=== PATIENT | male | born 1950 | race Caucasian/White ===

== ENCOUNTER → 2016-12-12 | Outpatient (CLI) | payer BC ==
[~2016-12-12] MED LIST: ASPI1TAB83; METO1TAB69 PO
--- NOTE | 2016-12-12 14:40 | DIAGNOSTIC IMAGING REPORT ---
TESTICULAR ULTRASOUND HISTORY: Left sided TESTICULAR LUMP COMPARISON: None. FINDINGS: Right testis: 5.1 x 2.9 x 2.5 cm. There are no intratesticular masses. Normal color flow. No hydrocele. There is a 1.1 cm cyst within the epidural head.. Left testis: 5.2 x 3.6 x 2.7 cm. There are no intratesticular masses. Normal color flow. No hydrocele. The epididymis is unremarkable. Slight left scrotal thickening in comparison to the right. The patient's palpable abnormality appears to correspond to the tail the left epididymis. This does not appear to be significantly hyperemic. There are no masses. IMPRESSION: 1. Normal bilateral testes. 2. A 1.1 cm right epididymal head cyst. 3. Mild left scrotal thickening. 4. The patient's palpable abnormality appears to correspond to the tail of the left epididymis. This does not appear to be significantly hyperemic. There are no masses. Electronically signed by: Isaias Silver M.D. 12/12/2016 2:39 PM Dictated Date/Time: 12/12/2016 2:34 PM
== END | disposition home or self-care (01) ==
LOC: C.ULTRBC 13:50
PROVIDERS: ATTEND Nurse Practitioner Family
DX: N50.9 Disorder of male genital organs, unspecified (principal); Z11.59 Encounter for screening for other viral diseases; C61 Malignant neoplasm of prostate

== ENCOUNTER → 2017-12-18 | Outpatient (CLI) | payer BC ==
[~2017-12-18] MED LIST changes: +METO100T44 PO; -METO1TAB69 PO
[2017-12-18 11:36] LABS: BLOOD UREA NITROGEN 17 mg/dl (7-18); CALCIUM 9.3 mg/dl (8.5-10.1); CARBON DIOXIDE 30 mmol/L (21-32); CHOLESTEROL 151 mg/dl (0-200); CREATININE 1.12 mg/dl (0.60-1.40); GLUCOSE 86 mg/dl (70-99); POTASSIUM 4.1 mmol/L (3.5-5.1); SODIUM 140 mmol/L (136-145)
[2017-12-18 11:41] LABS: LDL CHOLESTEROL CALCULATED 84 mg/dl
== END | disposition home or self-care (01) ==
LOC: C.LABBC 08:23
PROVIDERS: ATTEND Internal Medicine
DX: E78.5 Hyperlipidemia, unspecified (principal); Z12.5 Encounter for screening for malignant neoplasm of prostate

== ENCOUNTER → 2018-06-02 | Day surgery (SDC) | payer BC ==
[2018-05-26 15:23] VITALS: BMI 24.0
[~2018-06-02] VITALS: Ht 190.5 cm; Wt 89.1 kg
[~2018-06-02] MED LIST changes: -ASPI1TAB83; +ASPI1TAB83 PO; +ATOR-22 PO; +IBUP-1050 PO; +LIDOCAINE HCL 2% 2 ML VIAL (20MG/ML) ONE; +PROPOFOL IV EMULSION 10 MG/ML 20 ML VIAL ONE; +SODIUM CHLORIDE 0.9% 500ML 500 ML IV ONE
[2018-06-02 09:25] VITALS: Ht 190.5 cm; Wt 89.1 kg
[2018-06-02 09:32] VITALS: TEMP 36.6
--- NOTE | 2018-06-02 09:56 | Endo History and Physical ---
History & Physical Date of Service: Jun 02, 2018. Chief Complaint: HX OF POLYPS Referring Physician: DR LAND History of Present Illness 67 yo CM who presents for colonoscopy secondary to history of colon polyps. 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) Allergies Coded Allergies: No Known Allergies (Verified , 05/26/18) Current Medications Reported Home Medications Medications Dose Route/Sig Max Daily Dose Days Date Category Advil (Ibuprofen) 200 Mg Tab 400 Mg PO PRN 05/26/18 Reported Lipitor (Atorvastatin Calcium) 20 Mg Tab 20 Mg PO QAM 05/26/18 Reported Aspirin 81 Mg Tab 81 Mg PO QAM 02/27/15 Reported Toprol-Xl (Metoprolol Succinate) 100 Mg Tabcr 100 Mg PO QAM 02/27/15 Reported Vital Signs Weight (Kilograms): 89.09 Height (Feet): 6 Height (Inches): 3 Date Time Temp Pulse Resp B/P (MAP) Pulse Ox O2 Delivery O2 Flow Rate FiO2 06/02/18 09:32 36.6 88 20 128/82 (97) 95 Room Air Physical Exam General Appearance: WD/WN, no apparent distress Respiratory/Chest: Auscultation: breath sounds normal Cardiovascular: Heart Auscultation: RRR Abdomen: Bowel Sounds: normal Inspection & Palpation: soft, non-distended, no tenderness, guarding & rebound Assessment and Plan Assessment: 67 yo CM who presents for colonoscopy secondary to history of colon polyps. Plan: Proceed with colonoscopy.
--- NOTE | 2018-06-02 11:01 | Discharge Instructions ---
Endoscopy Patient Instructions Date / Procedure(s) Performed Jun 02, 2018. Colonoscopy Allergy Information Coded Allergies: No Known Allergies (Verified , 05/26/18) Discharge Date / Findings Jun 02, 2018. Diverticulosis Internal hemorrhoids Medication Instructions Stopped Medication(s): ASPIRIN LAST DOSE 06/01/18 OK to resume all medications today as prescribed Reported Home Medications Medications Dose Route/Sig Max Daily Dose Days Date Category Advil (Ibuprofen) 200 Mg Tab 400 Mg PO PRN 05/26/18 Reported Lipitor (Atorvastatin Calcium) 20 Mg Tab 20 Mg PO QAM 05/26/18 Reported Aspirin 81 Mg Tab 81 Mg PO QAM 02/27/15 Reported Toprol-Xl (Metoprolol Succinate) 100 Mg Tabcr 100 Mg PO QAM 02/27/15 Reported Provider Instructions Activity Restrictions - No exercising or heavy lifting for 24 hours. - Do not drink alcohol the day of the procedure. - Do not drive a car or operate machinery until the day after the procedure. - Do not make any important decisions or sign important papers in 24 hours after the procedure. Following Day: - Return to full activity which may include returning to work/school. Diet Start your diet with liquids and light foods (jello, soup, juice, toast). Then eat your usual diet if not nauseated. Treatment For Common After Affects For mild abdominal pain, bloating, or excessive gas: - Rest - Eat lightly - Lie on right side Follow-Up Information Follow-up with DR LAND as scheduled Anesthesia Information What You Should Know You have had a procedure that required some medicine to reduce anxiety and discomfort. This treatment is called moderate sedation. After receiving the treatment, you may be sleepy, but you will be able to breathe on your own. The effects of the treatment may last for several hours. Follow these instructions along with Activity/Diet recommendations noted above: * Do NOT do anything where dizziness or clumsiness would be dangerous. * Rest quietly at home today, then you can be up and about tomorrow. * Have a responsible person stay with you the rest of today. * You may have had an I.V. today. If so, you may take the dressing off later today. Recommendations Call your doctor if: * Trouble breathing * Continuous vomiting for more than 24 hours * Temperature above 101 degrees * Severe abdominal pain or bloating * Pain not relieved by pain medicine ordered * There is increased drainage or redness from any incision * A large amount of rectal bleeding greater than 2-3 tablespoons. (If you had a polyp/s removed or have hemorrhoids, a small amount of blood - from the rectum is to be expected.) * You have any unanswered questions or concerns. IN THE EVENT OF A SERIOUS EMERGENCY, GO TO THE NEAREST EMERGENCY ROOM Your discharge instructions were prepared by provider Anderson Landeros. Patient Instructions Signature Page D [place] Patient (or Guardian) Signature/Date: I have read and understand the instructions given to me by my caregivers. Caregiver/RN/Doctor Signature/Date: The above-named patient and/or guardian has received patient instructions on this date. + Original Patient Signature Page (only) stays with chart. Please make copy for patient.
--- NOTE | 2018-06-02 11:07 | GI REPORT ---
Patient Name: Qasim Reed Procedure Date: 06/02/2018 10:14 AM Date of : 1950 Admit Type: Outpatient Age: 67 Gender: Male Attending MD: Anderson Landeros DO Procedure: Colonoscopy Providers: Anderson Landeros DO Referring MD: Liang Bacon Indications: High risk colon cancer surveillance: Personal history of colonic polyps Medicines: Monitored Anesthesia Care Complications: No immediate complications. Estimated Blood Loss: Estimated blood loss: none. Procedure: Pre-Anesthesia Assessment: - Prior to the procedure, a History and Physical was performed, and patient medications and allergies were reviewed. The patient's tolerance of previous anesthesia was also reviewed. The risks and benefits of the procedure and the sedation options and risks were discussed with the patient. All questions were answered, and informed consent was obtained. Prior Anticoagulants: The patient has taken aspirin, last dose was 1 day prior to procedure. ASA Grade Assessment: II - A patient with mild systemic disease. After reviewing the risks and benefits, the patient was deemed in satisfactory condition to undergo the procedure. After I obtained informed consent, the scope was passed under direct vision. Throughout the procedure, the patient's blood pressure, pulse, and oxygen saturations were monitored continuously. The scope was introduced through the anus and advanced to the terminal ileum. The colonoscopy was performed without difficulty. The patient tolerated the procedure well. The quality of the bowel preparation was good. The terminal ileum, ileocecal valve, appendiceal orifice, and rectum were photographed. Findings: The perianal and digital rectal examinations were normal. Multiple small-mouthed diverticula were found in the sigmoid colon. Non-bleeding internal hemorrhoids were found during retroflexion. The hemorrhoids were small. Impression: - Diverticulosis in the sigmoid colon. - Non-bleeding internal hemorrhoids. - No specimens collected. Recommendation: - Resume previous diet. - Continue present medications. - Repeat colonoscopy in 5 years for surveillance. - Return to primary care physician as previously scheduled. Anderson Landeros DO 06/02/2018 11:07:17 AM This report has been signed electronically. Note Initiated On: 06/02/2018 10:14 AM Number of Addenda: 0 I attest to the content of the Intraoperative Record and orders documented therein, exceptions below {[id number]}
[2018-06-02 11:33] VITALS: BP 119/89; PULSE 76; O2SAT 96
--- NOTE | 2018-06-02 12:10 | Anesthesiology Progress Note ---
Anesthesia Post Op Note Date & Time Jun 02, 2018 at 12:10 Vital Signs Pain Intensity: 0 Vital Signs Past 12 Hours Date Time Temp Pulse Resp B/P (MAP) Pulse Ox O2 Delivery O2 Flow Rate FiO2 06/02/18 11:33 76 20 119/89 (99) 96 Room Air 06/02/18 11:18 89 20 114/86 (95) 96 Room Air 06/02/18 11:03 88 20 103/69 (80) 92 Room Air 06/02/18 09:32 36.6 88 20 128/82 (97) 95 Room Air Notes Mental Status: alert / awake / arousable, participated in evaluation Pt Amnestic to Procedure: Yes Nausea / Vomiting: adequately controlled Pain: adequately controlled Airway Patency, RR, SpO2: stable & adequate BP & HR: stable & adequate Hydration State: stable & adequate Anesthetic Complications: no major complications apparent
== END | disposition home or self-care (01) ==
LOC: C.GI 09:04
PROVIDERS: ATTEND Internal Medicine
DX: Z12.11 Encounter for screening for malignant neoplasm of colon (principal); Z86.010 Personal history of colon polyps; K57.30 Diverticulosis of large intestine without perforation or abscess without bleeding; K64.8 Other hemorrhoids; I48.91 Unspecified atrial fibrillation; I10 Essential (primary) hypertension; Z79.82 Long term (current) use of aspirin; Z90.79 Acquired absence of other genital organ(s); Z87.891 Personal history of nicotine dependence